=== PATIENT | male | born 1950 | race Caucasian/White ===

== ENCOUNTER 2019-08-16 07:57 | Outpatient (CLI) | payer MEDICARE, SELFPAY ==
[2019-08-16 08:30] LABS: Hematocrit 45.4 % (42.0-52.0); Hemoglobin 15.5 g/dL (14.0-18.0); Mean Corpuscular HGB Conc 34.1 g/dl (32-36); Mean Corpuscular Hemoglobin 30.9 pg (26-34); Mean Corpuscular Volume 90.6 fl (80-100); Mean Platelet Volume 8.9 fl (7.4-10.4); Platelet Count Result 211 k/mm3 (150-375); Red Blood Count 5.01 M/mm3 (4.6-6.20); Red Cell Distribution Width 12.5 % (11.5-14.5); White Blood Count 6.1 K/mm3 (4.5-10.0)
[2019-08-16 08:34] LABS: Add Urine Microscopic? YES; Appearance Urine Clear (Clear); Bilirubin Urine Negative (Negative); Blood Urine Negative (Negative); Color Urine Yellow (Yellow); Glucose Urine UA Negative (Negative); Ketones Urine Negative (Negative); Leukocyte Esterase Ur Negative LEU/UL (NEGATIVE); Mucus Urine Few /lpf; Nitrate Urine Negative (Negative); Protein Urine Negative (Negative); RBC Urine 0-2 /hpf (0-2); Specific Grav Ur 1.019 (1.001-1.035); Squamous Epithelial Cell Urine Rare /hpf (Few); WBC Urine 0-3 /hpf (0-3)
[2019-08-16 08:43] LABS: Albumin Level 4.5 g/dL (3.5-5.1); Blood Urea Nitrogen 21 mg/dL (9-20); Calcium 9.4 mg/dL (8.4-10.2); Carbon Dioxide 23 mmol/L (22-30); Chloride 109 mmol/L (98-107); Estimated Glomerular Filt Rate > 60; Glucose 105 mg/dL (75-110); Phosphorus 2.9 mg/dL (2.5-4.5); Sodium 141 mmol/L (137-145)
[2019-08-16 09:22] LABS: Hemoglobin A1C 5.4 % (<5.7)
[2019-08-16 09:49] LABS: Creatinine Urine 117.8 mg/dL; Total Protein Urine Random 11 mg/dL
== END 2019-08-16 07:58 | disposition home or self-care (01) ==
PROVIDERS: PCP Family Medicine; Visit Provider Internal Medicine Nephrology
DX: I10 Essential (primary) hypertension (principal); E11.9 Type 2 diabetes mellitus without complications
CPT/HCPCS: 36415; 80069; 81001; 82570; 83036; 84156; 85027

== ENCOUNTER 2019-12-07 09:01 | Outpatient (CLI) | payer MEDICARE, SELFPAY ==
[2019-12-07 09:31] LABS: Basophils Percent Auto 0.8 % (0.2-1.2); Eosinophils Absolute Auto 0.1 K/mm3 (0-0.3); Eosinophils Percent Auto 1.7 % (0-4.4); Hemoglobin 15.4 g/dL (14.0-18.0); Immature Granulocyte Absolute 0.02 K/mm3 (0.00-0.031); Immature Granulocyte Percent A 0.4 % (0-0.5); Lymphocytes Absolute Auto 1.09 K/mm3 (0.9-3.2); Lymphocytes Percent Auto 20.9 % (18.3-44.2); Mean Corpuscular HGB Conc 35.8 g/dl (32-36); Mean Corpuscular Hemoglobin 31.5 pg (26-34); Mean Corpuscular Volume 87.9 fl (80-100); Mean Platelet Volume 9.1 fl (7.4-10.4); Monocytes Absolute Auto 0.6 K/mm3 (0.1-0.6); Monocytes Percent Auto 11.7 % (2.6-8.5); Neutrophils Absolute Auto 3.4 K/mm3 (1.3-6.7); Neutrophils Percent Auto 64.5 % (45.5-73.1); Platelet Count Result 180 k/mm3 (150-375); Red Blood Count 4.89 M/mm3 (4.6-6.20); Red Cell Distribution Width 12.3 % (11.5-14.5); White Blood Count 5.2 K/mm3 (4.5-10.0)
[2019-12-07 09:36] LABS: Add Urine Microscopic? YES; Appearance Urine Clear (Clear); Bilirubin Urine Negative (Negative); Blood Urine Negative (Negative); Color Urine Yellow (Yellow); Glucose Urine UA Negative (Negative); Ketones Urine Negative (Negative); Leukocyte Esterase Ur Negative LEU/UL (NEGATIVE); Mucus Urine Heavy /lpf; Nitrate Urine Negative (Negative); Protein Urine Negative (Negative); RBC Urine 0-2 /hpf (0-2); Specific Grav Ur 1.017 (1.001-1.035); Squamous Epithelial Cell Urine Rare /hpf (Few); Urobilinogen Urine Negative mg/dL (<2.0); WBC Urine 0-3 /hpf (0-3)
[2019-12-07 09:44] LABS: Alanine Aminotransferase 55 U/L (4-50); Albumin Level 4.8 g/dL (3.5-5.1); Alkaline Phosphatase 42 U/L (38-126); Anion Gap 14.1 mmol/L (7-16); Aspartate Amino Transferase 51 U/L (17-59); Bilirubin,Total 0.6 mg/dL (0.2-1.3); Blood Urea Nitrogen 19 mg/dL (9-20); Calcium 9.8 mg/dL (8.4-10.2); Carbon Dioxide 23 mmol/L (22-30); Chloride 107 mmol/L (98-107); Cholesterol 157 mg/dL (0-200); Estimated Glomerular Filt Rate > 60; Glucose 103 mg/dL (75-110); HDL Direct 40 mg/dL; Potassium 4.1 mmol/L (3.4-5.0); Sodium 140 mmol/L (137-145); Triglycerides 195 mg/dL (<150)
[2019-12-07 09:55] LABS: LDL Cholesterol Direct 101 mg/dL
[2019-12-07 09:57] LABS: Hemoglobin A1C 5.4 % (<5.7)
[2019-12-07 10:15] LABS: Prostate Specific Antigen 2.6 ng/mL (< OR = 4.0)
[2019-12-07 10:53] LABS: Folic Acid > 20.0 ng/mL (2.76->20)
== END 2019-12-07 09:02 | disposition home or self-care (01) ==
PROVIDERS: PCP Physician Assistant; Visit Provider Physician Assistant
DX: E04.2 Nontoxic multinodular goiter (principal); I10 Essential (primary) hypertension; R73.03 Prediabetes; E78.2 Mixed hyperlipidemia; Z12.5 Encounter for screening for malignant neoplasm of prostate
CPT/HCPCS: 36415; 80053; 80061; 81001; 82607; 82746; 83036; 84153; 84436; 84443; 85025; G0103

== ENCOUNTER 2019-12-09 21:09 | Emergency (ER) | payer MEDICARE, SELFPAY ==
--- NOTE | ~2019-12-09 | XR_ITS ---
XR chest 1V portable DATE: 12/09/2019 22:23 INDICATION: Fever, dry cough TECHNIQUE: Portable AP chest on 12/09/2019 at 2217 hours COMPARISON: 10/08/2016 two-view chest 11/19/2016 CT pulmonary scan FINDINGS: There is mild elevation left diaphragm and mild atelectasis at the lung bases, greater on t he left. The lungs otherwise appear clear. Heart size appears within normal limits. There is aortic tortuosity. No pleural effusion or pulmonary vascular congestion or pneumothorax is detected. IMPRESSION: Mild elevation of left diaphragm Bibasilar infiltrate or atelectasis, greater on the left Reviewed, dictated and finalized at location A.
[2019-12-09 21:11] VITALS: BP 151/102; PULSE 83; RESP 20; TEMP 38; O2SAT 94
--- NOTE | 2019-12-09 21:42 | ED.FEVER ---
HPI - Fever General Chief Complaint: Fever Stated Complaint: fever and not feeling well Time Seen by Provider: 12/09/19 21:39 Source: patient and family Mode of arrival: ambulatory Limitations: no limitations History of Present Illness HPI Narrative: Patient is a 69-year-old male with a history of type 2 diabetes, hypertension, who presents for evaluation of fever, myalgias. Patient reports dry cough and congestion which began yesterday. Patient had muscle aches and cramping overnight, but developed a fever to 102 this evening. Patient has taken a gram of Tylenol prior to arrival. No chest pain, no current shortness of breath, no nausea, vomiting or abdominal pain. No dysuria or hematuria. Patient has a history of UTI and pneumonia in the past. No recent COVID exposures that the patient is aware of. Related Data Home Medications Medication Instructions Recorded Confirmed aspirin 81 mg tablet,delayed 81 mg PO DAILY 05/01/19 release fenofibrate nanocrystallized 145 145 mg PO DAILY 05/01/19 mg tablet formoterol fumarate 20 mcg/2 mL 2 ml INHALATION BID 05/01/19 05/03/19 solution for nebulization hydrocodone 5 mg-acetaminophen 300 1 tablet PO BID PRN 05/01/19 mg tablet ipratropium bromide 0.02 % 2.5 ml INHALATION Q6H PRN 05/01/19 05/03/19 solution for inhalation lidocaine 5 % topical patch 1 patch TOPICAL DAILY 05/01/19 losartan 100 1 tablet PO DAILY 05/01/19 mg-hydrochlorothiazide 12.5 mg tablet simvastatin 40 mg tablet 40 mg PO DAILY 05/01/19 tramadol 50 mg tablet 50 mg PO Q6H PRN 05/01/19 hydralazine 10 mg tablet 50 mg PO TID tablet 05/03/19 lisinopril 40 mg tablet 40 mg PO BID tablet 05/03/19 budesonide 0.5 mg/2 mL suspension 0.5 mg INHALATION BID ml 12/05/19 12/05/19 for nebulization celecoxib 400 mg capsule 400 mg PO BID cap 12/05/19 12/05/19 metformin 1,000 mg tablet 1,000 mg PO BID tablet 12/05/19 12/05/19 nifedipine 60 mg tablet,extended 60 mg PO BID tablet 12/05/19 12/05/19 release Allergies Allergy/AdvReac Type Severity Reaction Status Date / Time No Known Allergies Allergy Verified 12/09/19 23:42 Review of Systems Review of Systems: Narrative: CONSTITUTIONAL: Reports fever and chills. EYES: Denies visual changes, redness, or discharge. ENT: Reports rhinorrhea, congestion CARDIOVASCULAR: Denies chest pain, palpitations, or edema. RESPIRATORY: Reports dry cough GASTROINTESTINAL: Denies abdominal pain, nausea, vomiting, or diarrhea. GENITOURINARY: Denies dysuria or hematuria. SKIN: Denies rash or itching. MUSCULOSKELETAL: Reports myalgias NEUROLOGIC: Reports mild headache without neck pain, no numbness or weakness [facility] Past Medical History Medical History Arthritis Colon cancer screening Crushing injury of left foot Exercise hypoxemia Left foot pain Mixed hyperlipidemia Multinodular goiter BETO on CPAP Pre-diabetes Primary hypertension Prostate cancer screening Seasonal allergies Thyroid disorder Surgical History Surgical History History of foot surgery left foot 2005 Hx of thyroidectomy 2019 Social History Social History Smoking status: Former smoker Smoking end date: 05/17/04 Alcohol intake: never Substance use: never Exam Narrative: Exam Narrative: GENERAL: Awake, alert, conversant HEAD: Normocephalic, atraumatic. EYES: PERRLA and EOMI. ENT: Nares clear, no rhinorrhea or epistaxis. Mucous membranes moist. NECK: Supple. CHEST: No respiratory distress, breathing even and non labored HEART: Regular rate, sinus rhythm ABDOMEN:Non distended, non tender EXTREMITIES: Normal range of motion. No edema. SKIN: Warm, dry, no rash. NEURO:No focal deficits. Alert and oriented x3 Course Vital Signs Vital signs: Vital Signs Temperature 38.0 C H 12/09/19 21:11 Pulse Rate 8
[2019-12-09] MEDS: LACTATED RINGERS 1,000 ML 999 ML IV CONT (22:14)
[2019-12-09 22:23] LABS: Hemoglobin 14.9 g/dL (14.0-18.0); Mean Corpuscular HGB Conc 35.5 g/dl (32-36); Mean Corpuscular Hemoglobin 31.6 pg (26-34); Mean Corpuscular Volume 89.2 fl (80-100); Mean Platelet Volume 9.1 fl (7.4-10.4); Platelet Count Result 126 k/mm3 (150-375); Red Blood Count 4.71 M/mm3 (4.6-6.20); Red Cell Distribution Width 12.2 % (11.5-14.5); White Blood Count 3.5 K/mm3 (4.5-10.0)
[2019-12-09 22:33] LABS: Prothrombin Time 13.2 Seconds (11.1-14.7)
[2019-12-09 22:35] LABS: Lactic Acid Reflex 0.9 mmol/L (0.7-2.1)
[2019-12-09 22:37] LABS: Alanine Aminotransferase 105 U/L (4-50); Albumin Level 4.5 g/dL (3.5-5.1); Alkaline Phosphatase 41 U/L (38-126); Anion Gap 13.6 mmol/L (7-16); Aspartate Amino Transferase 84 U/L (17-59); Bilirubin,Total 0.4 mg/dL (0.2-1.3); Blood Urea Nitrogen 16 mg/dL (9-20); CRP < 0.5 mg/dL (<1.0); Calcium 9.5 mg/dL (8.4-10.2); Carbon Dioxide 23 mmol/L (22-30); Chloride 107 mmol/L (98-107); Estimated Glomerular Filt Rate > 60; Glucose 110 mg/dL (75-110); Potassium 3.6 mmol/L (3.4-5.0); Sodium 140 mmol/L (137-145)
[2019-12-09 22:44] LABS: Band Neutrophils Percent 2 % (0-6); Lymphocytes Absolute Manual 0.84 K/mm3 (1.1-4.5); Monocytes Absolute Manual 0.59 K/mm3 (0.1-0.90); Monocytes Percent Manual 17 % (3-9); Neutrophils Absolute Manual 2.06 K/mm3 (1.3-6.7); Neutrophils Percent Manual 57 % (46-73); Total Cells Counted 100
[2019-12-09 22:45] LABS: Platelet Estimate Decreased (Adequate)
[2019-12-09 22:46] LABS: Troponin I < 0.012 ng/mL (0.000-0.034)
[2019-12-09 22:51] VITALS: BP 146/83; PULSE 66; RESP 22; TEMP 37.5; O2SAT 96
[2019-12-09 22:53] VITALS: RESP 15; O2SAT 96
--- NOTE | 2019-12-09 22:57 | PC.NURSE ---
Patient states he feel a lot better now.
[2019-12-09 23:30] LABS: Add Urine Microscopic? YES; Appearance Urine Clear (Clear); Bacteria Urine Trace /hpf; Bilirubin Urine Negative (Negative); Blood Urine Negative (Negative); Color Urine Yellow (Yellow); Glucose Urine UA Negative (Negative); Ketones Urine Negative (Negative); Leukocyte Esterase Ur Negative LEU/UL (Negative); Mucus Urine Few /lpf; Nitrate Urine Negative (Negative); Protein Urine 1+ mg/dL (Negative); Specific Grav Ur 1.023 (1.001-1.035); Squamous Epithelial Cell Urine Rare /hpf (Few); Urobilinogen Urine Negative mg/dL (<2.0); WBC Urine 0-3 /hpf
[2019-12-10 00:11] VITALS: BP 124/79; PULSE 64; RESP 18; TEMP 37.1; O2SAT 95
[2019-12-10 23:51] LABS: SARS-CoV-2 RNA PCR Positive
== END 2019-12-10 00:03 | disposition home or self-care (01) ==
PROVIDERS: Emergency Provider Emergency Medicine; PCP Physician Assistant
DX: U07.1 COVID-19 (principal); R91.8 Other nonspecific abnormal finding of lung field; E11.9 Type 2 diabetes mellitus without complications; I10 Essential (primary) hypertension; M19.90 Unspecified osteoarthritis, unspecified site; E78.2 Mixed hyperlipidemia; G47.33 Obstructive sleep apnea (adult) (pediatric); E89.0 Postprocedural hypothyroidism; Z87.891 Personal history of nicotine dependence; Z87.440 Personal history of urinary (tract) infections; Z79.82 Long term (current) use of aspirin; Z79.84 Long term (current) use of oral hypoglycemic drugs
CPT/HCPCS: 36415; 71045; 80053; 81001; 83605; 84484; 85025; 85610; 85730; 86140; 87040; 87635; 96360; 99284; C9803; J7120; U0003

== ENCOUNTER 2020-01-04 11:31 | Outpatient (CLI) | payer MEDICARE, SELFPAY ==
[2020-01-04 13:38] LABS: Free T4 Free Thyroxine 1.12 ng/mL (0.78-2.19)
[2020-01-11 07:30] LABS: Thyrotropin Receptor Antibody <1.00 IU/L (<=2.00)
== END 2020-01-04 11:32 | disposition home or self-care (01) ==
PROVIDERS: PCP Physician Assistant; Visit Provider Internal Medicine Endocrinology, Diabetes & Metabolism
DX: E04.1 Nontoxic single thyroid nodule (principal)
CPT/HCPCS: 36415; 83519; 84439; 84443; 84480

== ENCOUNTER 2020-02-22 16:39 | Outpatient (CLI) | payer MEDICARE, SELFPAY ==
--- NOTE | ~2020-02-22 | CT_ITS ---
EXAMINATION: CT lung screening DATE: 02/22/2020 17:05 INDICATION: Personal history of nicotine dependence, prior smoker with 45 pack year history TECHNIQUE: Computed tomography (CT) of the chest was performed without intravenous contrast. The dose -length product (DLP) was 301.19 mGy-cm. Automated exposure control and iterative reconstruction tech [employer] were employed. COMPARISON: 11/16/2018 FINDINGS: There is chronic elevation of the left hemidiaphragm with passive atelectasis in the lingul a and left lower lobe. Mild chronic atelectasis is also noted in the right lower lobe. No suspicious pulmonary nodules are identified. There is no pleural effusion or pneumothorax. The lungs are free of focal airspace opacities. Mild emphysema is noted. No pathologically enlarged thoracic lymph nodes a re identified. The heart size is normal. The liver is diffusely low in attenuation when compared with the spleen, consistent with hepatic steatosis. There is moderate thoracic spondylosis. Healed fractu res of the sternum and multiple left ribs are noted. There is calcified coronary artery atheroscleros is. IMPRESSION: 1. Lung-RADS category 1: Negative. Continue annual screening with noncontrast low-dose chest CT in 12 months. Reviewed, dictated and finalized at location A. IMPRESSION: 1. Lung-RADS category 1: Negative. Continue annual screening with noncontrast l ow-dose chest CT in 12 months.
== END 2020-02-22 16:40 | disposition home or self-care (01) ==
PROVIDERS: PCP Physician Assistant; Visit Provider Nurse Practitioner Family
DX: Z12.2 Encounter for screening for malignant neoplasm of respiratory organs (principal); Z87.891 Personal history of nicotine dependence
CPT/HCPCS: G0297

== ENCOUNTER 2020-04-30 08:41 | Outpatient (CLI) | payer MEDICARE, SELFPAY ==
[2020-04-30 09:11] LABS: Alanine Aminotransferase 43 U/L (4-50); Albumin Level 4.4 g/dL (3.5-5.1); Alkaline Phosphatase 35 U/L (38-126); Anion Gap 10 mmol/L (8-16); Aspartate Amino Transferase 44 U/L (17-59); Bilirubin,Total 0.5 mg/dL (0.2-1.3); Blood Urea Nitrogen 20 mg/dL (9-20); Carbon Dioxide 28 mmol/L (22-30); Chloride 105 mmol/L (98-107); Cholesterol 155 mg/dL (0-200); Estimated Glomerular Filt Rate > 60; Glucose 98 mg/dL (75-110); HDL Direct 38 mg/dL; Potassium 3.7 mmol/L (3.4-5.0); Sodium 143 mmol/L (137-145); Triglycerides 152 mg/dL (<150)
[2020-04-30 09:16] LABS: Hemoglobin A1C 5.1 % (<5.7)
[2020-04-30 09:22] LABS: LDL Cholesterol Direct 97 mg/dL
== END 2020-04-30 08:42 | disposition home or self-care (01) ==
PROVIDERS: PCP Physician Assistant; Visit Provider Physician Assistant
DX: R73.03 Prediabetes (principal); E78.2 Mixed hyperlipidemia
CPT/HCPCS: 36415; 80053; 80061; 83036

== ENCOUNTER 2020-07-23 09:03 | Outpatient (CLI) | payer MEDICARE, SELFPAY | END 2020-07-23 09:04 | disposition home or self-care (01) | LOC: ANHCOVIDVC 09:03 | PROVIDERS: PCP Physician Assistant | DX: Z23 Encounter for immunization (principal) | CPT/HCPCS: 0001A; 91300 ==

== ENCOUNTER 2020-08-13 09:01 | Outpatient (CLI) | payer MEDICARE, SELFPAY | END 2020-08-13 09:02 | disposition home or self-care (01) | LOC: ANHCOVIDVC 09:01 | PROVIDERS: PCP Physician Assistant | DX: Z23 Encounter for immunization (principal) | CPT/HCPCS: 0002A; 91300 ==

== ENCOUNTER 2021-12-02 09:13 | Outpatient (CLI) | payer MEDICARE, SELFPAY ==
[2021-12-02 09:48] LABS: Basophils Percent Auto 0.4 % (0.2-1.2); Eosinophils Absolute Auto 0.1 K/mm3 (0-0.3); Eosinophils Percent Auto 2.3 % (0-4.4); Hemoglobin 15.4 g/dL (14.0-18.0); Immature Granulocyte Absolute 0.01 K/mm3 (0.00-0.031); Immature Granulocyte Percent A 0.2 % (0-0.5); Lymphocytes Absolute Auto 1.39 K/mm3 (0.9-3.2); Lymphocytes Percent Auto 26.2 % (18.3-44.2); Mean Corpuscular Hemoglobin 31.3 pg (26-34); Mean Corpuscular Volume 89.4 fl (80-100); Monocytes Absolute Auto 0.7 K/mm3 (0.1-0.6); Monocytes Percent Auto 13.2 % (2.6-8.5); Neutrophils Absolute Auto 3.1 K/mm3 (1.3-6.7); Neutrophils Percent Auto 57.7 % (45.5-73.1); Platelet Count Result 188 k/mm3 (150-375); Red Blood Count 4.92 M/mm3 (4.6-6.20); Red Cell Distribution Width 12.2 % (11.5-14.5); White Blood Count 5.3 K/mm3 (4.5-10.0)
[2021-12-02 10:24] LABS: Microalbumin Urine Random 50.3 mg/L (0-16.7)
[2021-12-02 10:27] LABS: Creatinine Urine 158.6 mg/dL; MALB Creatinine Ratio 31.7 mg/g (0-30)
[2021-12-02 17:17] LABS: Alanine Aminotransferase 45 U/L (6-50); Albumin Level 4.7 g/dL (3.5-5.1); Alkaline Phosphatase 43 U/L (38-126); Anion Gap 8 mmol/L (8-16); Aspartate Amino Transferase 39 U/L (17-59); Bilirubin,Total 0.7 mg/dL (0.2-1.3); Blood Urea Nitrogen 15 mg/dL (9-20); Calcium 9.1 mg/dL (8.4-10.2); Carbon Dioxide 23 mmol/L (22-30); Chloride 109 mmol/L (98-107); Cholesterol 163 mg/dL (0-200); Estimated Glomerular Filt Rate > 60; Glucose 100 mg/dL (65-110); HDL Direct 40 mg/dL; Potassium 3.6 mmol/L (3.4-5.0); Sodium 140 mmol/L (137-145); Triglycerides 285 mg/dL (<150)
[2021-12-02 17:31] LABS: LDL Cholesterol Direct 73 mg/dL
[2021-12-02 17:49] LABS: Prostate Specific Antigen 2.8 ng/mL (< OR = 4.0)
[2021-12-02 19:41] LABS: Hemoglobin A1C 5.3 % (<5.7)
== END 2021-12-02 09:14 | disposition home or self-care (01) ==
LOC: ANHLAB 09:17
PROVIDERS: PCP Family Medicine; Visit Provider Family Medicine
DX: Z12.5 Encounter for screening for malignant neoplasm of prostate (principal); E11.9 Type 2 diabetes mellitus without complications; E05.90 Thyrotoxicosis, unspecified without thyrotoxic crisis or storm; R06.81 Apnea, not elsewhere classified; R20.0 Anesthesia of skin; E78.2 Mixed hyperlipidemia
CPT/HCPCS: 36415; 80053; 80061; 82043; 82607; 83036; 84153; 84443; 85025; G0103

== ENCOUNTER 2021-12-08 15:41 | Outpatient (CLI) | payer MEDICARE, SELFPAY ==
--- NOTE | ~2021-12-08 | CT_ITS ---
EXAMINATION: CT lung screening DATE: 12/08/2021 16:03 INDICATION: Personal history of nicotine dependence, prior smoker with 78 pack year history TECHNIQUE: Computed tomography (CT) of the chest was performed without intravenous contrast. The dose -length product (DLP) was 279.97 mGy-cm. Automated exposure control and iterative reconstruction tech [employer] were employed. COMPARISON: 02/22/2020 FINDINGS: Again noted is chronic elevation of the left hemidiaphragm with associated passive atelecta sis of the left lung base. Mild chronic atelectasis of the right lower lobe is also noted. No suspici ous pulmonary nodules are identified. There is mild emphysema. No pleural effusion or pneumothorax. N o pathologically enlarged thoracic lymph nodes are identified. The heart size is normal. Multiple hea led left-sided rib fractures are noted. There is moderate thoracic spondylosis. There is calcified c oronary artery atherosclerosis. The liver is diffusely low in attenuation when compared with the sple en, consistent with hepatic steatosis. IMPRESSION: 1. Lung-RADS category 1: Negative. Continue annual screening with noncontrast low-dose chest CT in 12 months. Reviewed, dictated and finalized at location B. IMPRESSION: 1. Lung-RADS category 1: Negative. Continue annual screening with noncontrast l ow-dose chest CT in 12 months.
== END 2021-12-08 15:42 | disposition home or self-care (01) ==
PROVIDERS: PCP Family Medicine; Visit Provider Family Medicine
DX: Z12.2 Encounter for screening for malignant neoplasm of respiratory organs (principal); Z87.891 Personal history of nicotine dependence
CPT/HCPCS: 71271

== ENCOUNTER 2022-04-28 07:57 | Outpatient (CLI) | payer MEDICARE, SELFPAY ==
[2022-04-28 08:47] LABS: Alanine Aminotransferase 37 U/L (6-50); Albumin Level 4.6 g/dL (3.5-5.1); Alkaline Phosphatase 37 U/L (38-126); Anion Gap 7 mmol/L (8-16); Aspartate Amino Transferase 37 U/L (17-59); Bilirubin,Total 0.4 mg/dL (0.2-1.3); Blood Urea Nitrogen 16 mg/dL (9-20); Calcium 9.2 mg/dL (8.4-10.2); Carbon Dioxide 28 mmol/L (22-30); Chloride 108 mmol/L (98-107); Cholesterol 158 mg/dL (0-200); Estimated Glomerular Filt Rate > 60; Glucose 99 mg/dL (65-110); HDL Direct 39 mg/dL; Potassium 3.7 mmol/L (3.4-5.0); Sodium 143 mmol/L (137-145); Triglycerides 226 mg/dL (<150)
[2022-04-28 08:55] LABS: Hemoglobin A1C 5.4 % (<5.7)
[2022-04-28 08:58] LABS: LDL Cholesterol Direct 88 mg/dL
== END 2022-04-28 07:58 | disposition home or self-care (01) ==
PROVIDERS: PCP Family Medicine; Visit Provider Family Medicine
DX: E78.2 Mixed hyperlipidemia (principal); E11.9 Type 2 diabetes mellitus without complications
CPT/HCPCS: 36415; 80053; 80061; 83036

== ENCOUNTER 2022-11-10 09:56 | Outpatient (CLI) | payer MEDICARE, SELFPAY ==
[2022-11-10 10:43] LABS: Hemoglobin A1C 5.4 % (<5.7)
[2022-11-10 10:48] LABS: Alanine Aminotransferase 37 U/L (6-50); Albumin Level 4.9 g/dL (3.5-5.1); Alkaline Phosphatase 29 U/L (38-126); Anion Gap 8 mmol/L (8-16); Aspartate Amino Transferase 41 U/L (17-59); Bilirubin,Total 0.8 mg/dL (0.2-1.3); Blood Urea Nitrogen 21 mg/dL (9-20); Calcium 9.4 mg/dL (8.4-10.2); Carbon Dioxide 26 mmol/L (22-30); Chloride 105 mmol/L (98-107); Cholesterol 161 mg/dL (0-200); Creatine Kinase 113 U/L (55-170); Estimated Glomerular Filt Rate > 60; Glucose 98 mg/dL (65-110); HDL Direct 38 mg/dL; Sodium 139 mmol/L (137-145); Triglycerides 218 mg/dL (<150)
[2022-11-10 10:54] LABS: LDL Cholesterol Direct 102 mg/dL
[2022-11-10 10:57] LABS: Erythrocyte Sedimentation Rate 6 mm/hr (0-20)
[2022-11-10 11:11] LABS: Prostate Specific Antigen 2.9 ng/mL (< OR = 4.0)
[2022-11-10 11:14] LABS: Thyroid Stimulating Hormone Reflex 0.811 uIU/mL (0.465-4.68)
[2022-11-10 11:19] LABS: Microalbumin Urine Random 67.1 mg/L (0-16.7)
[2022-11-10 11:21] LABS: Creatinine Urine 213.3 mg/dL; MALB Creatinine Ratio 31.5 mg/g (0-30)
== END 2022-11-10 09:57 | disposition home or self-care (01) ==
PROVIDERS: PCP Family Medicine; Visit Provider Family Medicine
DX: E11.9 Type 2 diabetes mellitus without complications (principal); M79.10 Myalgia, unspecified site; R20.2 Paresthesia of skin; R25.2 Cramp and spasm; E78.2 Mixed hyperlipidemia; Z12.5 Encounter for screening for malignant neoplasm of prostate; E03.9 Hypothyroidism, unspecified
CPT/HCPCS: 36415; 80053; 80061; 82043; 82550; 82607; 83036; 84153; 84443; 85652; G0103

== ENCOUNTER 2023-04-28 07:31 | Outpatient (CLI) | payer MEDICARE, SELFPAY ==
[2023-04-28 08:31] LABS: Alanine Aminotransferase 26 U/L (6-50); Albumin Level 4.6 g/dL (3.5-5.1); Alkaline Phosphatase 41 U/L (38-126); Anion Gap 9 mmol/L (8-16); Aspartate Amino Transferase 28 U/L (17-59); Bilirubin,Total 0.8 mg/dL (0.2-1.3); Blood Urea Nitrogen 22 mg/dL (9-20); Calcium 10.2 mg/dL (8.4-10.2); Carbon Dioxide 27 mmol/L (22-30); Chloride 105 mmol/L (98-107); Cholesterol 159 mg/dL (0-200); Estimated Glomerular Filt Rate > 60; Glucose 94 mg/dL (65-110); HDL Direct 44 mg/dL; Potassium 3.8 mmol/L (3.4-5.0); Sodium 141 mmol/L (137-145); Triglycerides 132 mg/dL (<150)
[2023-04-28 08:42] LABS: LDL Cholesterol Direct 91 mg/dL
[2023-04-28 09:00] LABS: Hemoglobin A1C 5.3 % (<5.7)
== END 2023-04-28 07:32 | disposition home or self-care (01) ==
PROVIDERS: PCP Family Medicine; Visit Provider Family Medicine
DX: E78.2 Mixed hyperlipidemia (principal); I10 Essential (primary) hypertension; E11.9 Type 2 diabetes mellitus without complications
CPT/HCPCS: 36415; 80053; 80061; 83036

== ENCOUNTER 2023-04-30 14:56 | Outpatient (CLI) | payer MEDICARE, SELFPAY ==
--- NOTE | ~2023-04-30 | CT_ITS ---
EXAMINATION: CT lung screening DATE: 04/30/2023 15:24 INDICATION: Z87.891 - Personal history of nicotine dependence TECHNIQUE: Computed tomography (CT) of the chest was performed without intravenous contrast. Addition al 3D reconstructions utilizing coronal maximum intensity projection (MIP) were performed. Automated exposure control and iterative reconstruction technique were employed. The dose-length product was 28 7.73 mGy-cm. COMPARISON: 12/08/2021 FINDINGS: Chronic elevation of left hemidiaphragm with persistent volume loss and moderate compressive atelecta sis at the basilar left lower lobe. Additional unchanged mild discoid atelectasis at the lingula and in the contralateral right lower lobe. No suspicious pulmonary nodules, pulmonary edema or pleural ef fusion. Heart size normal. Atherosclerotic coronary artery calcifications. No pericardial effusion. T horacic aorta is normal in caliber. No pathologically enlarged thoracic lymphadenopathy. Diffuse hepa tic steatosis. Severe thoracic spondylosis. IMPRESSION: 1. Lung-RADS category 1: Negative. Continue annual screening with noncontrast low-dose chest CT in 12 months. Reviewed, dictated and finalized at location A. IO DESIGNER IMPRESSION: 1. Lung-RADS category 1: Negative. Continue annual screening with noncontrast l ow-dose chest CT in 12 months.
== END 2023-04-30 14:57 | disposition home or self-care (01) ==
PROVIDERS: PCP Family Medicine; Visit Provider Family Medicine
DX: Z12.2 Encounter for screening for malignant neoplasm of respiratory organs (principal); Z87.891 Personal history of nicotine dependence
CPT/HCPCS: 71271

== ENCOUNTER 2023-11-19 07:57 | Outpatient (CLI) | payer MEDICARE, SELFPAY ==
[2023-11-19 08:32] LABS: Basophils Percent Auto 0.6 % (0.2-1.2); Eosinophils Absolute Auto 0.1 K/mm3 (0-0.3); Eosinophils Percent Auto 2.5 % (0-4.4); Hematocrit 42.3 % (42.0-52.0); Hemoglobin 14.4 g/dL (14.0-18.0); Immature Granulocyte Absolute 0.01 K/mm3 (0.00-0.031); Immature Granulocyte Percent A 0.2 % (0-0.5); Lymphocytes Absolute Auto 1.34 K/mm3 (0.9-3.2); Lymphocytes Percent Auto 25.4 % (18.3-44.2); Mean Corpuscular Hemoglobin 31.5 pg (26-34); Mean Corpuscular Volume 92.6 fl (80-100); Mean Platelet Volume 8.7 fl (7.4-10.4); Monocytes Absolute Auto 0.5 K/mm3 (0.1-0.6); Monocytes Percent Auto 10.1 % (2.6-8.5); Neutrophils Absolute Auto 3.2 K/mm3 (1.3-6.7); Neutrophils Percent Auto 61.2 % (45.5-73.1); Platelet Count Result 202 k/mm3 (150-375); Red Blood Count 4.57 M/mm3 (4.6-6.20); Red Cell Distribution Width 12.1 % (11.5-14.5); White Blood Count 5.3 K/mm3 (4.5-10.0)
[2023-11-19 09:15] LABS: Creatinine Urine 72.6 mg/dL
[2023-11-19 09:20] LABS: MALB Creatinine Ratio 22.5 mg/g (0-30); Microalbumin Urine Random 16.3 mg/L (0-16.7)
[2023-11-19 12:13] LABS: Alanine Aminotransferase 26 U/L (6-50); Albumin Level 4.3 g/dL (3.5-5.1); Alkaline Phosphatase 43 U/L (38-126); Anion Gap 8 mmol/L (4-12); Aspartate Amino Transferase 28 U/L (17-59); Bilirubin,Total 0.5 mg/dL (0.2-1.3); Blood Urea Nitrogen 19 mg/dL (9-20); Calcium 9.4 mg/dL (8.4-10.2); Carbon Dioxide 25 mmol/L (22-30); Chloride 108 mmol/L (98-107); Cholesterol 140 mg/dL (0-200); Estimated Glomerular Filt Rate > 60; Glucose 101 mg/dL (65-110); HDL Direct 39 mg/dL; Potassium 3.6 mmol/L (3.4-5.0); Sodium 141 mmol/L (137-145); Triglycerides 146 mg/dL (<150)
[2023-11-19 12:20] LABS: Hemoglobin A1C 5.2 % (<5.7)
[2023-11-19 12:24] LABS: LDL Cholesterol Direct 85 mg/dL
[2023-11-19 12:41] LABS: Prostate Specific Antigen 2.9 ng/mL (< OR = 4.0)
== END 2023-11-19 07:58 | disposition home or self-care (01) ==
LOC: ANHLAB 08:00
PROVIDERS: PCP Family Medicine; Visit Provider Family Medicine
DX: E78.2 Mixed hyperlipidemia (principal); Z00.00 Encounter for general adult medical examination without abnormal findings; E11.9 Type 2 diabetes mellitus without complications; Z12.5 Encounter for screening for malignant neoplasm of prostate; E03.9 Hypothyroidism, unspecified; R53.83 Other fatigue
CPT/HCPCS: 36415; 80053; 80061; 82043; 83036; 84153; 84443; 85025; G0103